=== PATIENT | male | born 1990 | race Two or more races ===

== ENCOUNTER 2021-02-19 03:52 | Emergency (ER) | payer OTHER ==
[~2021-02-19] VITALS: Ht 170.2 cm; Wt 72.7 kg
[2021-02-19 04:25] VITALS: BP 146/88
[2021-02-19] MEDS ORDERED: LORazepam 2 MG TABLET PO ONE (04:30)
== END 2021-02-19 05:56 | disposition home or self-care (01) ==
LOC: EMS 03:52
DX: F22 Delusional disorders (principal); F41.9 Anxiety disorder, unspecified; F19.90 Other psychoactive substance use, unspecified, uncomplicated
CPT/HCPCS: 99283